=== PATIENT | female | born 1970 | race Caucasian/White ===

== ENCOUNTER 2021-06-28 09:59 | Day surgery (SDC) | payer BC ==
[2021-06-22 14:57] VITALS: BMI 26.6
[2021-06-28] MEDS ORDERED: Lidocaine 1% MPF 2 ML VIAL ONE (11:05)
[2021-06-28] MEDS ORDERED: PROPOFOL 20 ML ONE (11:42)
[2021-06-28] MEDS ORDERED: Midazolam HCl 2 mg/2 ml Vial ONE (11:42)
[2021-06-28] MEDS ORDERED: Neomycin-Polymyxin 1 ML AMP ONE (11:42)
[2021-06-28] MEDS ORDERED: Fentanyl 100 MCG/2 ML VIAL ONE (11:42)
[2021-06-28] MEDS ORDERED: Dexamethasone 4 mg/ml Vial ONE (11:42)
[2021-06-28] MEDS ORDERED: Ondansetron PF 4 MG/2 ML Vial ONE (11:42)
[2021-06-28] MEDS ORDERED: Lidocaine 1% PF 5 ML VIAL ONE (11:42)
[2021-06-28] MEDS ORDERED: ceFAZolin 2 GM/Dextrose 50 ML IVPB ONE (11:55)
[2021-06-28] MEDS ORDERED: Ketorolac Tromethamine 30 MG/ML VIAL ONE (12:31)
== END 2021-06-28 13:45 | disposition home or self-care (01) ==
LOC: CSHSDC 09:59
PROVIDERS: ATTEND Podiatrist Foot & Ankle Surgery
PROC: 0LBV0ZZ Excision of Right Foot Tendon, Open Approach (ICD-10-PCS; principal; 2021-06-28)
DX: M67.471 Ganglion, right ankle and foot (principal); Z79.899 Other long term (current) drug therapy; F41.1 Generalized anxiety disorder
CPT/HCPCS: 88304; J0690; J1100; J1885; J2250; J2405; J2704; J3010